=== PATIENT | male | born 1955 | race African-American/Black ===

== ENCOUNTER 2020-01-16 14:17 | Emergency (ER) | payer OTHER ==
[~2020-01-16] VITALS: Ht 157.5 cm; Wt 1001.5 kg
[2020-01-16 16:08] LABS: PLATELET COUNT 237 K/uL (142-355)
[2020-01-16 16:15] LABS: POTASSIUM 3.8 mmol/L (3.6-5.2); SODIUM 135 mmol/L (136-145)
[2020-01-16 16:44] LABS: PARTIAL THROMBOPLASTIN TIME 25.2 SECONDS (24.5-33.6)
[2020-01-16 19:30] VITALS: BP 167/86; TEMP 98.2
== END 2020-01-16 19:30 | disposition home or self-care (01) ==
LOC: ED 14:17
PROVIDERS: Family Medicine
DX: R42 Dizziness and giddiness (principal); I10 Essential (primary) hypertension; E11.9 Type 2 diabetes mellitus without complications; E86.0 Dehydration; F17.210 Nicotine dependence, cigarettes, uncomplicated
CPT/HCPCS: 80053; 81000; 84484; 85027; 85610; 85730; 93005; 96360; 96375; 99284; J1815